=== PATIENT | female | born 1945 | race Asian ===

== ENCOUNTER 2016-07-01 11:15 | Day surgery (SDC) | payer MEDICARE ==
[~2016-07-01] VITALS: Ht 157.5 cm; Wt 68.0 kg
[~2016-07-01 11:15] MED LIST: 0.9% Sodium Chloride 1,000 ML IV SCH; CALC600T12 PO; CHOL10008 PO; OMEP40CA36 PO; RANI75TA21 PO; Sodium Chloride LOK Flush 10 mL Syringe IV PRN; fentaNYL-PF 50 mCg/mL 2 mL Inj IVPUSH PRN
[2016-07-01] MEDS ORDERED: Propofol 10,000 mCg/mL 20 mL Inj ONE (11:16)
[2016-07-01 12:18] VITALS: BP 138/77; PULSE 79; RESP 14; O2SAT 93
--- NOTE | 2016-07-01 13:54 | PCM.HPANE ---
Patient Data Date of Service: Jul 01, 2016 ([id number]) Surgeon Admitting Provider: Attending Provider:Susan aPlafox MD Primary Care Physician:Kamala Cuello Other Provider: Reason for Visit Colon Cancer Screening, Gerd Ht/WT & BMI Height (Feet): 5 Height (Inches): 2 Weight (Kilograms): 68 Body Mass Index 27.00 Allergies Coded Allergies: ranitidine (Unverified Allergy, Severe, JITTERY, NERVOUSNESS, 05/12/15) aspirin (Verified Adverse Reaction, Severe, "THINS BLOOD", 05/12/15) Past Anesthesia History Anesthesia History: Denies:: Anesthesia Reactions, Fam Anesthesia Reaction, Fam Malignant Hypertherm, Malignant Hyperthermia Diabetes History Hx Diabetes?: No MRSA MRSA: No Medications Reported Medications Ranitidine (Zantac OTC)75 Mg [id number] Mg PO DAILY #1 PKG Ref 0 06/30/16 Cholecalciferol (Vitamin D3) (Vitamin D3)1,000 Unit Tab.chew1,000 Unit PO DAILY 06/30/16 Calcium Carbonate (Calcium)600 Mg Tablet1,250 Mg PO DAILY 06/30/16 Omeprazole 40 Mg Capsule.dr40 Mg PO DAILY Ref 0 05/12/15 History History of ENT Problems?: Yes HEENT History: Positive for:: Cataracts (STARTING TO DEVELOP) Sinus Problem (S/P RPR NASAL FX) Denies:: Hearing Problem Hx of Heart Problems?: No Cardiovascular History: Positive for:: Hypertension (BORDERLINE) Denies:: Chest Pain Congestive Heart Failure Irregular Heartbeat Hx of Respiratory Problem?: No Respiratory History: Denies:: Asthma Tuberculosis Use of C-PAP Machine Hx Neurologic Problems?: No Neurological History: Denies:: CVA Dizziness Seizures Hx of GI Problems?: Yes Gastrointestinal History: Positive for:: Gastroesphageal Reflux Hx of Problems?: No Female Hx: Denies:: Currently (S/P BTL) Endometriosis Pelvic Inflammatory Problems with Breasts? Skin History: Denies:: History Skin Disorders? Pressure Ulcers Hx Musculoskeletal Problems?: Yes Musculoskeletal History: Positive for:: Musculoskeletal Trauma (S/P IM NAIL RT TIBIA RETAINED HARDWARE RT LEG=CURRENT PROBLEM) Hx of Psycho/Social Problems?: No Hx Surgeries?: Yes (ECTOPIC PREG, NASAL BLEEDING, FX LEG,) Hx Any Other Health Problems?: Yes Other History: Positive for:: Hospitalization Denies:: Cancer Thyroid Disease History Blood Transfusions: Positive for:: Blood Transfusions Denies:: Blood Transfuse Reaction Hx Diabetes: No Hx Alcohol Use: NoHx Substance Use: No Smoking Status: Never Smoker Have You Smoked inLast 12 mo: No Stop/Bang Treated for Sleep Apnea?: No S-Snoring: Do You Snore Loudly: Yes T-Tired: feel tired, fatigued: No O-Obsered: Observed not breath: No P-Blood Pressure: treated: No B- Body Mass Index > 35 kg/m2: No A- Age over 50: Yes N- Neck Large Circumference: No G- Gender Male: No ARNOLD Total Score: 2 Risk Assessment Category Category 1A: Patient has history of documented sleep apnea, and HAS NOT received any narcotic, sedative or anesthesia administration during this stay. Category 1B: Patient has history of documented sleep apnea, and HAS received any narcotic , sedative or anesthesia administration during this stay Category 2: Patient has SUSPECTED Obstructive Sleep Apnea, and HAS received any narcotic , sedative or anesthesia administration during this stay. Category 3: Patient has SUSPECTED Obstructive Sleep Apnea and HAS NOT received narcotic, sedative or anesthesia administration during this stay. Category 4: Outpatient in Procedural Areas with known sleep apnea or who screen positive for High Risk via the STOP/BANG questionnaire. Exam Exam Vital Signs Vital Signs Date Time Temp Pulse Resp B/P Pulse Ox O2 Delivery O2 Flow Rate FiO2 07/01/16 12:18 79 14 138/77 93 Room Air General Appearance: Alert, No Acute Distress, Mild Distress Additional Information Rescue endoscopy underway Meds/Labs/Diagnostics Admission Meds Current Medications Sodium Chloride (Normal Saline) 1,000 ml @ 10 mls/hr Q24H IV Last administered on 07/01/16 13:16; Start 07/01/16 at 06:00 Lidocaine HCl (Xylocaine Viscous 2% Soln 15mL) 15 ml ONCE PO Last administered on 07/01/16 13:16; Start 07/01/16 at 06:00 Plan Impression Patient chart reviewed, patient interviewed and anesthestic plan with risks, benefits, and alternatives discussed, and informed consent obtained. NPO Status: 05/12 at 1830 ASA Physical Status: ASA2 Mod Systemic Disease Anesthetic Plan: MAC Bene/Risks/Altern/Consents: Yes HP Complete Prior to Induction: Yes Matt Maier MD Jul 01, 2016 13:54
[2016-07-01 13:58] VITALS: BP 107/57; PULSE 77; RESP 14; O2SAT 92
[2016-07-01 14:08] VITALS: BP 122/69; PULSE 72; RESP 16; O2SAT 92
[2016-07-01 14:18] VITALS: BP 118/63; PULSE 65; RESP 16; O2SAT 93
--- NOTE | 2016-07-01 14:28 | ENDO ---
[address] [address] ENDOSCOPY PROCEDURE PATIENT: FANG ANTUNEZ : 1945 MR#: [id number] ADMIT: 07/01/2016 JOB ID: [id number] PROCEDURE: Esophagogastroduodenoscopy. INDICATION: Gastroesophageal reflux. ANESTHESIA: Patient's ASA classification is two. Mallampati score was two. MEDICATIONS: Versed 4.5 mg and fentanyl 100 mcg. INSTRUMENT USED: GIF H 180 J. PROCEDURE DETAILS: After informed consent was obtained, the patient was brought into the GI suite where she was placed on oxygen via nasal cannula and monitored with continuous pulse oximeter, telemetry, and blood pressure monitoring. A time-out was performed, then she was placed in the left lateral decubitus position and medications were administered for sedation. A bite block was placed. The standard EGD scope was then inserted through the bite block and advanced under direct visualization to the 2nd portion of the duodenum without difficulty. FINDINGS: 1. Normal appearing duodenal bulb, first and second portions. Multiple random biopsies were obtained in the duodenum secondary to the patient's history of abnormal liver function tests and to evaluate for the possibility of celiac disease. 2. Normal-appearing pylorus. In the antrum and body of stomach there was mild erythema suggestive of mild gastritis and multiple random biopsies were obtained. 3. Retroflexed views in the gastric body revealed normal-appearing cardia and fundus. 4. The GE junction was at 41 cm and the GE junction was irregular with short tongues of salmon-colored mucosa arising from the GE junction suggestive of Mena's esophagus. Multiple biopsies were obtained. 5. The remainder of the esophagus appeared unremarkable otherwise. IMPRESSION: 1. Mild gastritis. 2. Irregular gastroesophageal junction. RECOMMENDATIONS: Continue PPI. Await biopsy results. Proceed to colonoscopy. COMPLICATIONS: None. ESTIMATED BLOOD LOSS: Less than 5 mL. SECOND PROCEDURE PERFORMED: Colonoscopy. INDICATION: Colon cancer screening. Please see above for ASA classification, Mallampati score, and medications. ANESTHESIA: In addition, during the colonoscopy, for deeper sedation than we were able to achieve with Versed and fentanyl, anesthesia assistance was requested. INSTRUMENTS USED: PCF H 180 AL. PREPARATION QUALITY: Good. PROCEDURE DETAILS: After completion of the EGD exam, a digital rectal exam was performed which was unremarkable. The colonoscope was then inserted into the rectum and advanced under direct visualization to the cecum, which identified by the presence of the ileocecal valve and appendiceal orifice. Once the cecum was reached, the colonoscope was withdrawn back to the rectum as the mucosa and lumen were examined. In the rectum, retroflexion was performed. Following retroflexion, the remaining air in the rectum was suctioned and the procedure was completed. FINDINGS: 1. In the cecum there was a large polyp measuring approximately 1.5-2 cm. The polyp was removed using a hot snare. In the resulting mucosal defect there was mild oozing of blood noted and therefore two hemoclips were placed successfully for mucosal approximation. 2. In the ascending colon there was an approximately 5 mm sessile polyp was removed with a hot snare. 3. In the descending colon there was an approximately 3-4 mm polyp that was removed with a cold snare. 4. In the sigmoid colon there was a diminutive polyp that was removed with cold biopsy forceps. 5. Scattered diverticula were seen throughout the sigmoid colon. IMPRESSION: 1. Cecal polyp. 2. Ascending polyp. 3. Descending polyp. 4. Sigmoid polyp. 5. Scattered sigmoid diverticula. RECOMMENDATIONS: 1. Avoid NSAIDs and anticoagulants for 72 hours. 2. Repeat colonoscopy pending polyp pathology results. COMPLICATIONS: None. ESTIMATED BLOOD LOSS: Less than 5 mL.
--- NOTE | 2016-07-05 13:48 | PATH ---
SURGICAL PATHOLOGY Attending Physician:Ramana Quintanilla CASE STATUS: Signed Out PATIENT NAME: FANG ANTUNEZ PID: [id number] : 1945 DATE COLLECTED:07/01/2016 22:51 SPECIMEN: 1: Duodenum, Biopsy 2: Gastric, Biopsy 3: Esophagus, Biopsy 4: Colon, Biopsy 5: Colon, Biopsy 6: Colon, Biopsy 7: Colon, Biopsy CLINICAL HISTORY: 1). DUODENAL BIOPSY 2). RANDOM GASTRIC BIOPSY 3). DISTAL ESOPHAGUS BIOPSY 4). CECAL POLYP 5). ASCENDING POLYP 6). DESCENDING POLYP 7). SIGMOID POLYP FINAL DIAGNOSIS: 1.DUODENAL BIOPSY: CHANGES OF CHRONIC DUODENITIS WITH FOCAL FOVEOLAR METAPLASIA. Negative for evidence of celiac disease. Negative for dysplasia and malignancy. 2.RANDOM GASTRIC BIOPSY: SUPERFICIAL MINIMAL CHRONIC GASTRITIS INVOLVING FUNDIC MUCOSA. Negative for evidence of Helicobacter. Negative for intestinal metaplasia. Negative for dysplasia and malignancy. 3.DISTAL ESOPHAGUS BIOPSY: FRAGMENTS OF GASTRIC CARDIA-TYPE MUCOSA AND SMALL AMOUNT OF SQUAMOUS EPITHELIUM CHRONICALLY INFLAMED. Negative for specialized metaplasia of Mena' s-type esophagus. Negative for dysplasia and malignancy. Small focus of pancreatic acinar metaplasia. Eosinophils are not increased. 4.CECAL POLYP: POLYPOID MIXED TUBULAR AND VILLIFORM ADENOMA. 5.ASCENDING COLON POLYP: TUBULAR ADENOMA INVOLVING SINGLE BIOPSY FRAGMENT. 6.DESCENDING COLON POLYP: POLYPOID-SHAPED FRAGMENT OF COLON MUCOSA CONSISTENT WITH MUCOSAL POLYPOID REDUNDANCY. Negative for dysplasia and malignancy. 7.SIGMOID COLON POLYP: POLYPOID-SHAPED FRAGMENT OF COLON MUCOSA CONSISTENT WITH MUCOSAL POLYOID REDUNDANCY. Negative for dysplasia and malignancy. ICD10 code D12.0 GROSS DESCRIPTION: The specimen is received in seven formalin filled containers labeled with the patient's name. 1). The specimen is sublabeled "duodenal" and consists of 2 portions of tissue which aggregate to 0.4 x 0.4 x 0.3 CM. Specimen is entirely submitted in cassette 1A. 2). The specimen is sublabeled "random gastric" and consists of 3 portions of tissue which aggregate to 0.5 x 0.4 x 0.3 CM. The specimen is entirely submitted in cassette 2A. 3). The specimen is sublabeled "distal esophagus" and consists of 3 portions of tissue which aggregate to 0.4 x 0.4 x 0.3 CM. The specimen is entirely submitted in cassettes 3A. 4). The specimen is sublabeled "cecal polyp" and consists of a 1.2 x 1.2 x 0.9 CM portion of tissue. The specimen is sectioned into multiple pieces and entirely submitted in cassette 4A. 5). The specimen is sublabeled "ascending polyp" and consists of 2 portions of tissue which aggregate to 0.3 x 0.3 x 0.2 CM. The specimen is entirely submitted in cassette 5A. 6). The specimen is sublabeled "descending polyp" and consists of 3 portions of tissue which aggregate to 0.6 x 0.3 x 0.2 CM. The specimen is entirely submitted in cassette 6A. 7). The specimen is sublabeled "sigmoid polyp" and consists of 2 portions of tissue which aggregate to 0.3 x 0.3 x 0.2 CM. The specimen is entirely submitted in cassette 7A. 07/02/2016 DAC MICRO DESCRIPTION: See diagnosis. ICD-9 CODES: CPT CODES: 1: 54270 2: 55625 3: 81922 4: 03864 5: 34757 6: 25649 7: 48673 Electronically Signed Out Ralph Miller MD [facility] [address], [place] [address] Technical component performed at [facility], [facility] [address], [place], [address]
== END 2016-07-01 23:59 | disposition home or self-care (01) ==
LOC: END 11:15
PROVIDERS: ATTEND Internal Medicine Gastroenterology
DX: Z12.11 Encounter for screening for malignant neoplasm of colon (principal); D12.0 Benign neoplasm of cecum; D12.2 Benign neoplasm of ascending colon; D12.4 Benign neoplasm of descending colon; D12.5 Benign neoplasm of sigmoid colon; K57.30 Diverticulosis of large intestine without perforation or abscess without bleeding; K21.9 Gastro-esophageal reflux disease without esophagitis; K29.50 Unspecified chronic gastritis without bleeding; K29.80 Duodenitis without bleeding; I10 Essential (primary) hypertension; Z79.899 Other long term (current) drug therapy; Z87.891 Personal history of nicotine dependence
CPT/HCPCS: 43239; 45385; J2250; J7030